=== PATIENT | female | born 2000 | race Caucasian/White ===

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

== ENCOUNTER 2020-11-17 10:59 | Emergency (ER) | payer OTHER ==
[~2020-11-17] VITALS: Ht 160 cm; Wt 59.1 kg
[2020-11-17] MEDS ORDERED: LIDOCAINE 5% TRANSDERMAL PATCH TD ONE (13:00)
[2020-11-17] MEDS ORDERED: IBUPROFEN 600 MG TABLET PO ONE (13:00)
[2020-11-17 13:42] VITALS: BP 115/67
== END 2020-11-17 13:47 | disposition home or self-care (01) ==
LOC: EMS 11:03
DX: S49.91XA Unspecified injury of right shoulder and upper arm, initial encounter (principal); M25.511 Pain in right shoulder; J45.909 Unspecified asthma, uncomplicated; Y04.0XXA Assault by unarmed brawl or fight, initial encounter; Y93.89 Activity, other specified; Y92.89 Other specified places as the place of occurrence of the external cause; Y99.8 Other external cause status
CPT/HCPCS: 99284; 73030-TC; 73060-TC; Z7502; Z7610

== ENCOUNTER 2020-12-30 21:36 | Emergency (ER) | payer OTHER ==
[~2020-12-30] VITALS: Ht 160 cm; Wt 59.1 kg
[2020-12-30 21:48] VITALS: BP 117/88
== END 2020-12-30 23:00 | disposition left against medical advice (07) ==
LOC: EMS 21:36
DX: M79.602 Pain in left arm (principal); Z53.21 Procedure and treatment not carried out due to patient leaving prior to being seen by health care provider

== ENCOUNTER 2021-07-15 14:28 | Emergency (ER) | payer OTHER ==
[~2021-07-15] VITALS: Ht 160 cm; Wt 61.4 kg
[2021-07-15] MEDS ORDERED: IBUPROFEN 600 MG TABLET PO ONE (15:15)
[2021-07-15 15:56] VITALS: BP 124/65
== END 2021-07-15 16:13 | disposition home or self-care (01) ==
LOC: EMS 14:34
DX: S40.012A Contusion of left shoulder, initial encounter (principal); J45.909 Unspecified asthma, uncomplicated; W50.0XXA Accidental hit or strike by another person, initial encounter; Y93.89 Activity, other specified; Y92.89 Other specified places as the place of occurrence of the external cause; Y99.8 Other external cause status
CPT/HCPCS: 99283